=== PATIENT | male | born 1995 | race Caucasian/White ===

== ENCOUNTER → 2018-09-25 | Outpatient (CLI) | payer OTHER ==
[~2018-09-25] MED LIST: ALBU90OI; AMPDEX10 PO; AZIT250 PO; Augmentin 875-1 EACH PO; CLON.1 PO; CYCL10 PO; LORA2 PO; METPHE20ER PO; NAPR500 PO; NYSTRI30T TOP; PENVK500 PO; PERIDEX15 ML MM; Percocet 5-3251 EACH PO; Prednisone10 MG PO; RXNEOPOLHC TOP; RXPENVK250 PO; RXTRAM50 PO; TRAM50 PO; TRIA80TC TOP
[2018-09-25 15:02] LABS: U Amphetamine Screen Not Detected; U Barbituate Screen Not Detected; U Benzodiazapine Screen Not Detected; U Buprenorphine Screen Not Detected; U Cannabinoids Screen DETECTED; U Cocaine Screen Not Detected; U Methadone Screen Not Detected; U Methamphetamine Screen Not Detected; U Opiates Screen Not Detected; U Oxycodone Screen Not Detected; U Phencyclidine Screen Not Detected; U Propoxyphene Screen Not Detected
== END | disposition home or self-care (01) ==
LOC: LAB 14:34 → LAB SHORT 14:34
PROVIDERS: Registered Nurse Psychiatric/Mental Health
DX: F90.2 Attention-deficit hyperactivity disorder, combined type (principal); Z79.899 Other long term (current) drug therapy
CPT/HCPCS: G0480

== ENCOUNTER 2023-06-12 18:29 | Emergency (ER) | payer OTHER ==
[~2023-06-12] VITALS: Ht 175.3 cm; Wt 81.7 kg
[2023-06-12 19:04] VITALS: BP 146/101
[2023-06-12] MEDS ORDERED: Ondansetron HCl 2 MG / ML 2ML Vial IV ONE (19:10)
== END 2023-06-12 20:09 | disposition left against medical advice (07) ==
LOC: ER 18:29
DX: R11.2 Nausea with vomiting, unspecified (principal); R19.7 Diarrhea, unspecified; Z53.29 Procedure and treatment not carried out because of patient's decision for other reasons
CPT/HCPCS: 99281